=== PATIENT | female | born 1950 | race Caucasian/White ===

== ENCOUNTER → 2020-01-20 | Outpatient (CLI) | payer MEDICARE, BC ==
[~2020-01-20] MED LIST: AMLO2.5T5 PO; ASPI81TA59 PO; DICL75TA PO; EZET10TA20 PO; FLUO40CA2 PO; METO50TA29 PO; NORT10CA PO; ROSUVASTATIN CA20 MG PO; VIT1TABL34 PO
== END | disposition home or self-care (01) ==
LOC: LAB 09:09
PROVIDERS: ATTEND Registered Nurse
DX: Z11.59 Encounter for screening for other viral diseases (principal)
CPT/HCPCS: U0003-CS

== ENCOUNTER → 2020-01-25 | Day surgery (SDC) | payer MEDICARE, BC ==
[~2020-01-25] MED LIST changes: +IV RINGERS SOLUTION,LACTATED 1,000 ML IV SCH; +ONDANSETRON PF 4 MG/2 ML VIAL. IV PRN; +PROPOFOL 10,000 MCG/ML (20ML) VIAL IV ONE
[2020-01-25 09:25] VITALS: BP 142/77
== END | disposition home or self-care (01) ==
LOC: SURG 07:17
PROVIDERS: ATTEND Emergency Medicine
DX: Z12.11 Encounter for screening for malignant neoplasm of colon (principal); Z88.5 Allergy status to narcotic agent; Z79.899 Other long term (current) drug therapy; Z79.82 Long term (current) use of aspirin; Z85.038 Personal history of other malignant neoplasm of large intestine; Z86.010 Personal history of colon polyps
CPT/HCPCS: G0105; J2704; J7120; 45378

== ENCOUNTER 2021-01-09 20:44 | Emergency (ER) | payer MEDICARE, BC ==
[~2021-01-09] VITALS: Ht 172.7 cm; Wt 83.4 kg
[~2021-01-09 20:44] MED LIST changes: -IV RINGERS SOLUTION,LACTATED 1,000 ML IV SCH; -ONDANSETRON PF 4 MG/2 ML VIAL. IV PRN; -PROPOFOL 10,000 MCG/ML (20ML) VIAL IV ONE
--- NOTE | 2021-01-09 21:25 | PHYS DOC ---
General Adult EDM: Chief Complaint: MECHANICAL FALL HPI: HPI: ".. I missed a step.. and fell.. hurt this Rt hand.. and alexx bumped my head..." Patient is a 70 year old female who presents with above hx and complaints of injury to right hand and contusion to head. No loss of consciousness. Patient localized pain primary in fingers. Patient denies any recent travel. No significant ill contacts. No history immunosuppression. Normally follows with Dr. Johnson. Review of Systems: Review of Systems: Constitutional: Denies fever or chills Eyes: Denies change in visual acuity HENT: Denies nasal congestion or sore throat. Complains of head injury Respiratory: Denies cough or shortness of breath Cardiovascular: Denies chest pain or edema GI: Denies abdominal pain, nausea, vomiting, bloody stools or diarrhea : Denies dysuria Musculoskeletal: Complains of right hand injury Integument: Denies rash Neurologic: Denies headache, focal weakness or sensory changes Endocrine: Denies polyuria or polydipsia Lymphatic: Denies swollen glands Psychiatric: Denies depression or anxiety Family History: Family History: Noncontributory to presentation Current Medications: Current Meds: See nursing for home meds Allergies: Allergies: Allergies Coded Allergies Type Severity Reaction Last Updated Verified peanut Allergy Severe 01/09/21 Yes codeine Allergy Unknown 01/25/20 Yes Physical Exam: PE: Constitutional: Well developed, well nourished, no acute distress, non-toxic appearance. [] HENT: Normocephalic, atraumatic, bilateral external ears normal, oropharynx moist, no oral exudates, nose normal. [] Eyes: PERRLA, EOMI, conjunctiva normal, no discharge. [] Neck: Normal range of motion, no tenderness, supple, no stridor. [] Cardiovascular:Heart rate regular rhythm, no murmur [] Lungs & Thorax: Bilateral breath sounds clear to auscultation [] Abdomen: Bowel sounds normal, soft, no tenderness, no masses, no pulsatile masses. [] Skin: Warm, dry, no erythema, no rash. [] Back: No tenderness, no CVA tenderness. [] Extremities: No tenderness, no cyanosis, no clubbing, ROM intact, no edema. [] Neurologic: Alert and oriented X 3, normal motor function, normal sensory function, no focal deficits noted. [] Psychologic: Affect normal, judgement normal, mood normal. [] EKG: EKG: [] Radiology/Procedures: Radiology/Procedures: [][address] [place] [id number] IMAGING REPORT Signed PATIENT: TORSTEN GORDON IACCOUNT: [id number] : 1950 LOCATION: ER AGE: 70 SEX: F EXAM STATUS: REG ER ORD. PHYSICIAN: ADIEL JIMÉNEZ MD REASON: hand pain r/t fall PROCEDURE: HAND LEFT 3V EXAM: PA, oblique and lateral views left hand DATE: 01/09/2021 9:21 PM INDICATION: Reason: hand pain r/t fall / Spl. Instructions: / History: . COMPARISON: No Prior FINDINGS: Advanced thumb CMC joint DJD. No acute fracture or dislocation. Scattered IP joint degenerative changes are seen. IMPRESSION: 1. No acute fracture or dislocation. 2. Advanced thumb CMC joint DJD. Electronically signed by: Eze Ruiz MD (01/09/2021 11:10 PM) [facility] DICTATED AND SIGNED BY: EZE RUIZ MD DATE: 01/09/21 0889 CC: CURTIS JOHNSON MD; ADIEL JIMÉNEZ MD ~MTH0 [address] [address] IMAGING REPORT Signed PATIENT: TORSTEN GORDON IACCOUNT: [id number] : 1950 LOCATION: ER AGE: 70 SEX: F EXAM STATUS: REG ER ORD. PHYSICIAN: ADIEL JIMÉNEZ MD REASON: Injury from fall with nose pain and abrasion PROCEDURE: CT MAXILLOFACIAL WO CONTRAST EXAM: CT HEAD WITHOUT IV CONTRAST CLINICAL HISTORY: Reason: Injury from fall with nose pain and abrasion / Spl. Instructions: / History: COMPARISON: None. TECHNIQUE: Routine CT of the head without contrast. Soft tissues and bone windows were reviewed. PQRS compliance statement - One or more of the following individualized dose reduction techniques were utilized for this study: 1. Automated exposure control 2. Adjustment of the mA and/or kV according to patient size 3. Use of iterative reconstruction technique FINDINGS: There is no evidence of hemorrhage, mass or extra-axial fluid collection. Herring-white differentiation is maintained with no evidence of edema. Subcortical, periventricular as well as deep white matter foci of hypoattenuation likely changes of chronic small vessel disease. There is no mass effect or shift of the intracranial structures. There is prominence of the ventricles and sulci bilaterally consistent with generalized cerebral atrophy. The cerebellum and brainstem are unremarkable. The calvarium demonstrates no evidence of fracture or focal lesion. There is normal aeration of the visualized paranasal sinuses and mastoid air cells. The visualized portions of the orbits are normal. Soft tissue swelling overlying the frontal region. IMPRESSION: 1. No evidence for acute intracranial process. 2. White matter changes likely chronic small vessel disease. EXAM: CT CERVICAL SPINE WITHOUT IV CONTRAST CLINICAL HISTORY: Reason: Injury from fall with nose pain and abrasion / Spl. Instructions: / History: COMPARISON: None available. TECHNIQUE: Helical CT of the cervical spine was performed. Axial, coronal and sagittal reformatted images were also performed. PQRS compliance statement - One or more of the following individualized dose reduction techniques were utilized for this study: 1. Automated exposure control 2. Adjustment of the mA and/or kV according to patient size 3. Use of iterative reconstruction technique FINDINGS: Height loss of the inferior endplate of C5 with associated sclerosis likely chronic. Otherwise vertebral body heights are preserved. Severe C5-6 and moderate to severe C6-7 disc height loss with prominent anterior posterior endplate osteophytes. No spondylolisthesis. Advanced facet degenerative changes are seen. Atlantodental degenerative changes are seen. Degenerative changes are seen most prominent at C5-6 at C6-7 where there is mild to moderate central canal stenosis. IMPRESSION: 1. No acute fracture or subluxation. 2. Multilevel degenerative changes most prominent at C5-6 and C6-7. EXAM: CT facial bones without contrast CLINICAL HISTORY: Reason: Injury from fall with nose pain and abrasion / Spl. Instructions: / History: COMPARISON: None available. TECHNIQUE: Helical CT of the face/paranasal sinuses was acquired and axial, coronal and sagittal reformatted images were generated. ---PQRS compliance statement - One or more of the following individualized dose reduction techniques were utilized for this study: 1. Automated exposure control 2. Adjustment of the mA and/or kV according to patient size 3. Use of iterative reconstruction technique--- FINDINGS: No definite fracture is noted of the facial bones. Lamina papyracea are intact. Soft tissue swelling overlying the frontal region. Soft tissue swelling overl artur the nasal bone The visualized paranasal sinuses are well-aerated. No evidence of air-fluid levels. The mastoids are unremarkable. The globes, extraocular muscles, optic nerves and retrobulbar fat are normal. Visualized upper aerodigestive tract is normal. Mandible and bilateral temporomandibular joints are normal. IMPRESSION: 1. No evidence for acute fracture or dislocation of the facial bones. 2. Soft tissue swelling overlying the nasal bone and frontal region. Electronically signed by: Eze Ruiz MD (01/09/2021 9:58 PM) [facility] DICTATED AND SIGNED BY: EZE RUIZ MD DATE: 01/09/212148 CC: CURTIS JOHNSON MD; ADIEL JIMÉNEZ MD ~MTH0 0 Heart Score: C/O Chest Pain: N/A HEART Score for Chest Pain: HEART Score for Chest Pain Response (Comments) Value History Moderately Suspicious 1 ECG Nonspecific Repolarizatio 1 Total 2 Risk Factors: Risk Factors: DM, Current or recent (<one month) smoker, HTN, HLP, family history of CAD, obesity. Risk Scores: Score 0 - 3: 2.5% MACE over next 6 weeks - Discharge Home Score 4 - 6: 20.3% MACE over next 6 weeks - Admit for Clinical Observation Score 7 - 10: 72.7% MACE over next 6 weeks - Early Invasive Strategies Course & Med Decision Making: Course & Med Decision Making Pertinent Labs and Imaging studies reviewed. (See chart for details) Patient use ice packs as needed. Elevate. Apply Polysporin 4 times a day to abrasions. Tylenol and ibuprofen for pain. Urbano-ray if no improvement in 2 weeks. Follow-up with Dr. Johnson. Return if any concerns. Take Tylenol ibuprofen for pain. If on returning home vomits more than once must have reexam. Return if any concerns. Have Dr. Johnson review ED evaluation Impression: 1. Trip and fall 2. Contusion 3. Abrasions 4. Sprain strain 5. Head Injury [] Dragon Disclaimer: Dragon Disclaimer: This electronic medical record was generated, in whole or in part, using a voice recognition dictation system. Departure Departure: Referrals: CURTIS JOHNSON MD (PCP) ADIEL JIMÉNEZ MD Jan 09, 2021 21:25
[2021-01-09] MEDS ORDERED: BACITRACIN ZINC TOPICAL OINT PACKET. TP ONE (21:45)
[2021-01-09] MEDS ORDERED: TETANUS AND DIPHTHERIA TOX/PF 0.5 ML VIAL. VAX IM ONE (21:45)
--- NOTE | 2021-01-09 22:01 | RAD ---
EXAM: CT HEAD WITHOUT IV CONTRAST CLINICAL HISTORY: Reason: Injury from fall with nose pain and abrasion / Spl. Instructions: / Histor y: COMPARISON: None. TECHNIQUE: Routine CT of the head without contrast. Soft tissues and bone windows were reviewed. PQRS compliance statement - One or more of the following individualized dose reduction techniques wer e utilized for this study: 1. Automated exposure control 2. Adjustment of the mA and/or kV according to patient size 3. Use of iterative reconstruction technique FINDINGS: There is no evidence of hemorrhage, mass or extra-axial fluid collection. Herring-white differentiation is maintained with no evidence of edema. Subcortical, periventricular as w ell as deep white matter foci of hypoattenuation likely changes of chronic small vessel disease. There is no mass effect or shift of the intracranial structures. There is prominence of the ventricles and sulci bilaterally consistent with generalized cerebral atro phy. The cerebellum and brainstem are unremarkable. The calvarium demonstrates no evidence of fracture or focal lesion. There is normal aeration of the visualized paranasal sinuses and mastoid air cells. The visualized portions of the orbits are normal. Soft tissue swelling overlying the frontal region. IMPRESSION: 1. No evidence for acute intracranial process. 2. White matter changes likely chronic small vessel disease. EXAM: CT CERVICAL SPINE WITHOUT IV CONTRAST CLINICAL HISTORY: Reason: Injury from fall with nose pain and abrasion / Spl. Instructions: / Histor y: COMPARISON: None available. TECHNIQUE: Helical CT of the cervical spine was performed. Axial, coronal and sagittal reformatted im ages were also performed. PQRS compliance statement - One or more of the following individualized dose reduction techniques wer e utilized for this study: 1. Automated exposure control 2. Adjustment of the mA and/or kV according to patient size 3. Use of iterative reconstruction technique FINDINGS: Height loss of the inferior endplate of C5 with associated sclerosis likely chronic. Otherwise verteb ral body heights are preserved. Severe C5-6 and moderate to severe C6-7 disc height loss with promine nt anterior posterior endplate osteophytes. No spondylolisthesis. Advanced facet degenerative changes are seen. Atlantodental degenerative changes are seen. Degenerative changes are seen most prominent at C5-6 at C6-7 where there is mild to moderate central canal stenosis. IMPRESSION: 1. No acute fracture or subluxation. 2. Multilevel degenerative changes most prominent at C5-6 and C6-7. EXAM: CT facial bones without contrast CLINICAL HISTORY: Reason: Injury from fall with nose pain and abrasion / Spl. Instructions: / Histor y: COMPARISON: None available. TECHNIQUE: Helical CT of the face/paranasal sinuses was acquired and axial, coronal and sagittal refo rmatted images were generated. ---PQRS compliance statement - One or more of the following individualized dose reduction techniques were utilized for this study: 1. Automated exposure control 2. Adjustment of the mA and/or kV according to patient size 3. Use of iterative reconstruction technique--- FINDINGS: No definite fracture is noted of the facial bones. Lamina papyracea are intact. Soft tissue swelling overlying the frontal region. Soft tissue swelling overlying the nasal bone The visualized paranasal sinuses are well-aerated. No evidence of air-fluid levels. The mastoids are unremarkable. The globes, extraocular muscles, optic nerves and retrobulbar fat are normal. Visualized upper aerodigestive tract is normal. Mandible and bilateral temporomandibular joints are normal. IMPRESSION: 1. No evidence for acute fracture or dislocation of the facial bones. 2. Soft tissue swelling overlying the nasal bone and frontal region. Electronically signed by: Eze Rouse MD (01/09/2021 9:58 PM) [facility]
--- NOTE | 2021-01-09 23:13 | RAD ---
EXAM: PA, oblique and lateral views left hand DATE: 01/09/2021 9:21 PM INDICATION: Reason: hand pain r/t fall / Spl. Instructions: / History: . COMPARISON: No Prior FINDINGS: Advanced thumb CMC joint DJD. No acute fracture or dislocation. Scattered IP joint degenerative jurado es are seen. IMPRESSION: 1. No acute fracture or dislocation. 2. Advanced thumb CMC joint DJD. Electronically signed by: Eze Rouse MD (01/09/2021 11:10 PM) [facility]
[2021-01-10 20:59] VITALS: BP 153/78
== END 2021-01-10 00:33 | disposition home or self-care (01) ==
LOC: ER 20:44
DX: S00.93XA Contusion of unspecified part of head, initial encounter (principal); S00.31XA Abrasion of nose, initial encounter; S69.91XA Unspecified injury of right wrist, hand and finger(s), initial encounter; Z91.010 Allergy to peanuts; Z88.5 Allergy status to narcotic agent; W01.198A Fall on same level from slipping, tripping and stumbling with subsequent striking against other object, initial encounter; Y93.89 Activity, other specified; Y92.89 Other specified places as the place of occurrence of the external cause; Y99.8 Other external cause status
CPT/HCPCS: 70450; 70486; 72125; 73130; 99285

== ENCOUNTER → 2021-05-24 | Outpatient (CLI) | payer MEDICARE, BC ==
--- NOTE | 2021-05-24 17:11 | RAD ---
XR KNEE_RT 1-2 VIEWS History: Reason: RIGHT KNEE PAIN / Spl. Instructions: / History: Technique: 2 views right knee. Comparison: None. Findings: Moderate to advanced tricompartment right knee DJD most prominent within the lateral compartment. No significant knee joint effusion. No dislocation. No fracture. Vascular calcifications. Impression: 1. Moderate to severe right knee DJD. Electronically signed by: Tulio Bowie DO (05/24/2021 5:09 PM) [id number]
== END ==
LOC: RAD 14:36
PROVIDERS: ATTEND Internal Medicine Rheumatology
DX: M17.11 Unilateral primary osteoarthritis, right knee (principal); M79.18 Myalgia, other site; F51.01 Primary insomnia; R53.82 Chronic fatigue, unspecified
CPT/HCPCS: 73560

== ENCOUNTER → 2021-06-08 | Outpatient (CLI) | payer MEDICARE, BC ==
--- NOTE | 2021-06-14 09:53 | RAD ---
INDICATION : Routine Screening. COMPARISON: Priors including May 2019 TECHNIQUE: Standard mammogram screening views of the bilateral breasts were obtained with 3D tomosynt hesis. CAD was utilized. FINDINGS: The breasts are fatty density. No definite suspicious mass. IMPRESSION: BI-RADS Category 2: Benign findings. Recommend repeat screening examination in one year. The patient was placed into the recall system with a suggested recall date for follow up imaging. Mammography is the most sensitive method for finding small breast cancers, but it does not detect the m all and is not a substitute for careful clinical examination. A negative mammogram does not negate a clinically suspicious finding and should not result in delay in biopsying a clinically suspicious abnormality. Electronically signed by: Job Enriquez MD (06/14/2021 9:50 AM) [id number]
== END ==
LOC: MAMMO 13:43
PROVIDERS: ATTEND Family Medicine
DX: Z12.31 Encounter for screening mammogram for malignant neoplasm of breast (principal)
CPT/HCPCS: 77063; 77067